=== PATIENT | male | born 2000 | race Caucasian/White ===

== ENCOUNTER 2020-04-12 13:15 | Emergency (ER) | payer OTHER ==
[~2020-04-12] VITALS: Ht 175.3 cm; Wt 90.7 kg
[2020-04-12] MEDS ORDERED: KETOROLAC TROMETHAMINE 15 MG INJ IVP ONE (14:00)
[2020-04-12] MEDS ORDERED: IV NS 1000 ML 1,000 ML IV ONE (14:00)
[2020-04-12 14:33] LABS: BASOPHILS % (AUTO) 0.2 % (0.0-2.0); EOSINOPHILS % (AUTO) 1.2 % (0.0-7.0); HEMATOCRIT 44.7 % (36.7-47.1); HEMOGLOBIN 15.2 g/dL (12.5-16.3); LYMPHOCYTES # (AUTO) 0.6 K/uL (20.0-40.0); LYMPHOCYTES % (AUTO) 17.6 % (20.5-51.5); MEAN CORPUSCULAR HEMOGLOBIN 29.9 uug (23.8-33.4); MEAN CORPUSCULAR HGB CONC 34 g/dL (32.5-36.3); MEAN CORPUSCULAR VOLUME 87.5 fL (73.0-96.2); MONOCYTES # (AUTO) 0.9 K/uL (2.0-10.0); MONOCYTES % (AUTO) 25.8 % (0.0-11.0); NEUTROPHILS # (AUTO) 1.8 K/uL (1.8-8.9); NEUTROPHILS % (AUTO) 55.2 % (38.5-71.5); PLATELET COUNT (AUTO) 162 K/uL (152-348); RED BLOOD CELL COUNT(AUTO) 5.11 MIL/uL (4.06-5.63); WHITE BLOOD COUNT (AUTO) 3.3 K/uL (3.6-10.2)
[2020-04-12 14:45] LABS: CREATININE 0.9 mg/dL (0.6-1.3)
[2020-04-12 14:57] LABS: BILIRUBIN,TOTAL 0.3 mg/dL (0.2-1.0); TOTAL PROTEIN, SERUM 6.8 g/dL (6.4-8.2)
[2020-04-12] MEDS ORDERED: KETOROLAC TROMETHAMINE 15 MG INJ ONE ×2 (15:07→15:08)
[2020-04-12 15:10] VITALS: BP 131/89
--- NOTE | 2020-04-12 15:10 | NUR ---
Patient discharged to home in stable condition. Written and verbal after care instructions given. Patient verbalizes understanding of instructions. Stressed follow up or return to ER for worsening s/s.pt walks in steady gait. Addendum: 04/12/20 at 1535 by PATRICK pt was comfortable, resting the whole er stay.
--- NOTE | 2020-04-12 17:12 | NUR ---
called [phone], per pt request with covid result. left a message.
[2020-04-13 00:01] LABS: EOSINOPHILS % (MANUAL) 2 % (0-8); LYMPHOCYTES % (MANUAL) 25 % (20-40); MONOCYTES % (MANUAL) 19 % (2-10); NEUTROPHILS % (MANUAL) 54 % (42-75)
== END 2020-04-12 15:40 | disposition home or self-care (01) ==
LOC: ER 13:15
DX: U07.1 COVID-19 (principal); F19.11 Other psychoactive substance abuse, in remission; M79.10 Myalgia, unspecified site; R07.9 Chest pain, unspecified; R00.0 Tachycardia, unspecified; F17.200 Nicotine dependence, unspecified, uncomplicated; Z87.09 Personal history of other diseases of the respiratory system; F19.10 Other psychoactive substance abuse, uncomplicated; J06.9 Acute upper respiratory infection, unspecified
CPT/HCPCS: 36415; 71045; 80053; 83880; 84484; 85007; 85025; 87400; 87426; 96374; 99284; J1885; U0003; 70030-TC; A4663; J7030